=== PATIENT | male | born 1960 | race Caucasian/White ===

== ENCOUNTER → 2017-03-07 | Outpatient (CLI) | payer OTHER ==
[~2017-03-07] MED LIST: AMLODIPINE BESY10 MG PO; ATORVASTATIN CA10 MG PO; CITALOPRAM HBR40 MG PO; METOPROLOL SUC100 MG PO; NORCO 10/3251 TABLET PO; OMEPRAZOLE40 M1 PO; PERCOCET 5/31 TABLET PO; TAMSULOSIN HCL0.4 MG PO; ZOFRAN ODT4 MG PO
== END | disposition home or self-care (01) ==
LOC: CDC 08:10
DX: I45.10 Unspecified right bundle-branch block (principal); L98.9 Disorder of the skin and subcutaneous tissue, unspecified
CPT/HCPCS: 93000

== ENCOUNTER 2017-03-20 08:41 | Day surgery (SDC) | payer OTHER ==
[~2017-03-20] VITALS: Ht 172.7 cm; Wt 133.8 kg
[~2017-03-20 08:41] MED LIST changes: +LO-DOSE ASPIRIN81 M2 PO; +VALSARTAN320 MG PO; +VITAMIN B-6100 MG PO; +VITAMIN D-32000 UNI2 PO
[2017-03-20 09:49] VITALS: BP 150/88
[2017-03-20] MEDS ORDERED: PERCOCET 5/31 TABLET PO (15:47)
[2017-03-20 16:27] VITALS: BP 144/73
[2017-03-20 16:55] VITALS: BP 137/73
== END 2017-03-20 17:05 | disposition home or self-care (01) ==
LOC: SDC 08:41
DX: D17.0 Benign lipomatous neoplasm of skin and subcutaneous tissue of head, face and neck (principal); I10 Essential (primary) hypertension; G47.30 Sleep apnea, unspecified; Z79.82 Long term (current) use of aspirin; I45.10 Unspecified right bundle-branch block
CPT/HCPCS: 88304; J0330; J0690; J1100; J2250; J2405; J3010

== ENCOUNTER 2018-03-11 16:04 | Emergency (ER) | payer OTHER ==
[~2018-03-11] VITALS: Ht 172.7 cm; Wt 138.4 kg
[2018-03-11 17:02] VITALS: BP 179/82
== END 2018-03-11 17:03 | disposition home or self-care (01) ==
LOC: EME 16:04
DX: I10 Essential (primary) hypertension (principal); F32.9 Major depressive disorder, single episode, unspecified; F41.9 Anxiety disorder, unspecified
CPT/HCPCS: 99281; 99283